=== PATIENT | female | born 1990 | race Caucasian/White ===

== ENCOUNTER 2016-10-15 15:42 | Inpatient (IN) | payer OTHER ==
[~2016-10-15] VITALS: Ht 165.1 cm; Wt 95.5 kg
[2016-10-15 17:57] VITALS: Ht 165.1 cm; Wt 95.5 kg
[2016-10-15] MEDS ORDERED: PRENTAB26 PO (18:08)
[2016-10-15] MEDS ORDERED: VALA500T60 PO (18:08)
[2016-10-15] MEDS ORDERED: LACTATED RINGER'S 1000ML 500 ML IV PRN (18:26)
[2016-10-15] MEDS ORDERED: LACTATED RINGER'S 1000ML 1,000 ML IV PRN (18:26)
[2016-10-15] MEDS ORDERED: OXYTOCIN 30 UNITS/500ML NSS IV PRN (18:30)
[2016-10-15 18:52] LABS: HEMATOCRIT 36.3 % (37-47); MEAN CELL VOLUME 86.4 fL (80-100); MEAN CORPUSCULAR HEMOGLOBIN 29.3 pg (25-34); MEAN CORPUSCULAR HGB CONC 33.9 g/dl (32-36); MEAN PLATELET VOLUME 10.3 fL (7.4-10.4); PLATELET COUNT 248 K/uL (130-400); WHITE BLOOD COUNT 11.67 K/uL (4.8-10.8)
--- NOTE | 2016-10-15 18:54 | HISTORY & PHYSICAL EXAMINATION ---
DATE OF ADMISSION: 10/15/2016 HISTORY OF PRESENT ILLNESS: This is a 26-year-old G3, P2, due date 10/13/2016 making her 40 weeks and 2 days today who has had an unremarkable course. She was seen today in the office and her NST done was nonreactive. Biophysical profile was 6/8. There was no bleeding. The patient reported decreased movement x3 days. Amniotic fluid index was 19.6. The patient was offered induction and has agreed. The patient is here today on labor and delivery with no shortness of breath, no chills, no fever. On arrival, heart rate is category 1. Plan is to start labor induction. course has been unremarkable except for today at 40 weeks and 2 days. NST was nonreactive. Biophysical profile was 6/8, no bleeding. PAST MEDICAL HISTORY: 1. History of genital herpes and has been on Valtrex for prophylaxis at 36 weeks size, has no lesions today. 2. History of irritable bowel syndrome. PAST SURGICAL HISTORY: 1. Dental surgery. 2. Colonoscopy. SOCIAL HISTORY: The patient is . Denies drugs, tobacco or alcohol use. ALLERGIES: THE PATIENT IS ALLERGIC TO AMOXICILLIN. LABS: Blood type A positive, antibody negative, rubella immune, GBS negative. PHYSICAL EXAMINATION: GENERAL: Well-developed, well-nourished white female in no acute distress. HEART: S1, S2, regular rhythm and rate. LUNGS: Clear to auscultation bilaterally. ABDOMEN: Gravid. Bedside ultrasound shows cephalic presentation. PELVIC: The patient is 2 cm, 60% effaced and minus 2. EXTREMITIES: No cyanosis, clubbing or edema. ASSESSMENT AND PLAN: A 26-year-old G3, P2 at 40 weeks and 2, NST today is nonreactive. Biophysical profile 6/8, no bleeding. The patient was offered labor induction and has agreed. The patient is therefore here for induction of labor. The patient is admitted and plan is to start labor induction with Pitocin.
[2016-10-15] MEDS: LACTATED RINGER'S 1000ML 1,000 ML IV SCH (20:42)
[2016-10-16] MEDS: LACTATED RINGER'S 1000ML 1,000 ML IV SCH ×2 (02:50→04:34)
[2016-10-16] MEDS ORDERED: BUPIVACAINE 0.25% 30 ML VIAL ONE (03:34)
[2016-10-16] MEDS ORDERED: EpHEDrine SULFATE INJ 50 MG/ML AMP ONE (03:34)
[2016-10-16] MEDS ORDERED: FENTANYL 2MCG/ML ROPIV 1.25MG/ML 100ML BAG EPI ONE (03:35)
[2016-10-16] MEDS ORDERED: FENTANYL CITRATE INJ 50 MCG/1 ML 2 ML VIAL ONE (03:35)
[2016-10-16] MEDS ORDERED: LACTATED RINGER'S 1000ML 500 ML IV PRN (04:36)
[2016-10-16] MEDS ORDERED: NALOXONE HCL INJ 1 MG in SODIUM CHLORIDE 0.9% 1000ML 1,000 ML IV PRN (04:36)
[2016-10-16] MEDS ORDERED: DiphenhydrAMINE HCL 50 MG/ML VIAL IV PRN (04:45)
[2016-10-16] MEDS ORDERED: NALOXONE HCL INJ 0.4 MG/1 ML VIAL/CARP IV PRN (04:45)
[2016-10-16] MEDS ORDERED: ONDANSETRON INJ 2 MG/ML 2 ML VIAL IV PRN (04:45)
[2016-10-16] MEDS ORDERED: NALBUPHINE HCL INJ 10 MG/ML AMP IV PRN (04:45)
[2016-10-16] MEDS ORDERED: EpHEDrine SULFATE INJ 50 MG/ML AMP IV PRN (04:45)
[2016-10-16] MEDS ORDERED: FENTANYL 2MCG/ML ROPIV 1.25MG/ML 100ML BAG EPI PRN (04:45)
[2016-10-16] MEDS ORDERED: OXYTOCIN 30 UNITS/500ML NSS IV PRN (08:15)
[2016-10-16] MEDS ORDERED: HYDROCORTISONE ACETATE 25 MG SUPP PR PRN (08:15)
[2016-10-16] MEDS ORDERED: SUPERCREAM 0.870 % 15GM JAR EXT PRN (08:15)
[2016-10-16] MEDS ORDERED: LANOLIN OINT EXT PRN ×2 (08:15)
[2016-10-16] MEDS ORDERED: ACETAMINOPHEN 325 MG TAB PO PRN (08:15)
[2016-10-16] MEDS ORDERED: BENZOCAINE 20% AER SPR 82.5 GM CAN EXT PRN (08:15)
--- NOTE | 2016-10-16 08:46 | DELIVERY SUMMARY ---
DATE OF OPERATION: 10/16/2016 / DELIVERY NOTE DATE OF DELIVERY: 10/16/2016. The patient delivered a live female in occiput anterior presentation. There was a double nuchal cord which was easily reduced. Infant was delivered and placed on mother's abdomen. Cord clamped and cut. Cord gas was obtained. Placenta was spontaneously delivered. Inspection of the placenta showed what was grossly normal. There was some calcification uterine placenta. There was 3-vessel cord seen. Placenta is sent to pathology for pathological analysis because of poor testing. Inspection of the perineum shows a first degree midline laceration which was repaired with Vicryl. ESTIMATED BLOOD LOSS: 400 mL. Infant's weight and Apgars pending via pediatrics. The patient and baby are doing well in recovery. All instruments are removed from the vagina including laps, sponges and needles and accounted for x2. I attest to the content of the Intraoperative Record and any orders documented therein. Any exceptions are noted below. MTDD
--- NOTE | 2016-10-16 10:14 | Anesthesia Procedure Note ---
Anesthesia Epidural Removal Nt Date & Time Oct 16, 2016 at 10:14 Vital Signs Pain Intensity: 0.0 Notes Mental Status: alert / awake / arousable, participated in evaluation Nausea / Vomiting: adequately controlled Pain: adequately controlled Airway Patency, RR, SpO2: stable & adequate BP & HR: stable & adequate Hydration State: stable & adequate Neuraxial Anesthesia: was administered, sensory block is resolving Anesthetic Complications: no major complications apparent, pt satisfied with anesthetic care Epidural: removed without complications, with tip intact
[2016-10-16 10:20] VITALS: BP 102/56; PULSE 86; TEMP 36.8
[2016-10-16 11:30] VITALS: BP 109/62; PULSE 83; TEMP 36.9
[2016-10-16 15:30] VITALS: BP 121/77; PULSE 99; TEMP 36.8
[2016-10-16] MEDS: IBUPROFEN 600 MG TAB PO PRN ×2 (16:11→20:55)
[2016-10-16 20:30] VITALS: BP 115/67; PULSE 88; TEMP 36.8
[2016-10-16] MEDS: DOCUSATE SODIUM 100 MG CAP PO SCH (20:30)
[2016-10-16 23:25] VITALS: BP 114/67; PULSE 72; TEMP 36.5
[2016-10-17 04:30] VITALS: BP 95/58; PULSE 74; TEMP 36.7
[2016-10-17 06:54] LABS: HEMATOCRIT 34.1 % (37-47)
--- NOTE | 2016-10-17 07:32 | OB/GYN Progress Note ---
VP OF MARKETING Progress Note Date of Service: Oct 17, 2016. Patient is seen and examined. She feels well, no complaints. Likes to go home Ambulating without dizziness Voiding without difficulty Tolerating regular diet with out N&V Bleeding is minimal No fever/ chills/ CP/ SOB/ N&V/ Leg pain Breast feeding without problems Date Time Temp Pulse Resp B/P Pulse Ox O2 Delivery O2 Flow Rate FiO2 10/17/16 04:30 36.7 74 20 95/58 Room Air 10/16/16 23:25 36.5 72 20 114/67 Room Air 10/16/16 23:25 Room Air 10/16/16 20:30 36.8 88 18 115/67 Room Air 10/16/16 15:30 36.8 99 18 121/77 10/16/16 15:30 Room Air 10/16/16 11:30 36.9 83 18 109/62 Room Air 10/16/16 10:20 Room Air 10/16/16 10:20 36.8 86 18 102/56 Room Air Last 24 Hours Test 10/17/16 06:18 Hemoglobin 11.5 g/dL Hematocrit 34.1 % PE: General: Alert, orientedx3, NAD Abd: soft, NT, fundus firm, below Umbilicus Perineum intact, Lochia rubra minimal Ext; NT, no edema AP: 26 yo s/p , ppd# 1 VSS Afebrile doing well Continue routine care All questions were answered D/C home per her request if baby will be d/c'd Instructions were given when to call
--- NOTE | 2016-10-17 07:33 | Discharge Instructions ---
Discharge Instructions Date of Service Oct 17, 2016. Admission Reason for Admission: Induction Discharge Discharge Diagnosis / Problem: Discharge Goals Goal(s): Routine recovery after delivery Medications Continue Dispensed Medications: supercream, dermaplast, tucks, lansinoh Activity Recommendations Activity Limitations: as noted below Lifting Limitations: gradually increase as tolerated Exercise/Sports Limitations: until after follow-up appointment May Resume Sexual Activity: after follow-up appointment Shower/Bathe: no limitations Driving or Machine Use: ACTIVITY RECOMMENDATIONS: * Gradual return to full activity over the next 2-3 weeks. * No lifting - nothing heavier than baby over the next 2-3 weeks. * Do not engage in vigorous exercise, sexual activity or sports until cleared by your physician. * Do not drive or operate any motorized equipment until cleared by your physician. * You may shower/bathe daily. BREAST CARE: If you are not breast feeding: * Wear a supportive bra 24 hours a day for one to two weeks. * Avoid stimulating your breasts and nipples as much as possible during the first few weeks after delivery. * When taking a shower, have the warm water hit your back, not breasts. * When your breasts feel full, apply ice packs. Usually three to four times a day helps ease the discomfort. * Take a mild pain medication (Tylenol/Motrin) when you are uncomfortable. If breast feeding: * Use breast milk to lubricate nipples. Lansinoh cream may be used for sore nipples. You do not need to remove cream prior to breast feeding. If using a different brand of cream, check the label for directions regarding removal of cream prior to nursing. * Wear a supportive bra. * If having problems with breasts or breast feeding, call a solar energy consultant and designer or your health care provider. EPISIOTOMY CARE: After delivery, if you have an episiotomy (stitches), the following steps will ease discomfort and aid healing. * For the first 24 hours after delivery, place ice packs next to your episiotomy to help reduce swelling. * After the first 24 hour-period, sitz baths, either portable or in the tub, are suggested. A shower with a shower arm sprayed over the episiotomy may be comforting. * Genoveva care should be done after each voiding and bowel movement. Squirt warm water from a plastic bottle over the perineum (region of the body between the anus and urinary opening) and pat dry. * Use Dermoplast to ease discomfort. Shake container. [place] directly over the episiotomy. * Place a Tucks on a clean sanitary pad next to your episiotomy. OVER THE COUNTER MEDICATION: * For discomfort or pain, you may use Acetaminophen (Tylenol), Ibuprofen (Advil ), or Naproxen (Aleve) following the package directions. * For constipation you may use Colace following the package directions. SPECIAL CARE INSTRUCTIONS: When you are discharged from the hospital, it is important for you to follow the instructions listed below: * During the first week at home, you should be able to care for yourself and your baby. In addition, the usual light household activities are encouraged. * Limit your activities to the way you feel. Do not try to clean the house or move furniture. Be sensible. * If you actively engage in sports and have done so up until the time of your delivery, you may resume these activities as soon as you feel able. This may take up to one month or even longer. Use good judgment. * Continue to take your vitamins for at least six weeks after the of your baby. * Your diet need not be limited unless you were on a special diet before your delivery. Breast-feeding mothers need around 2500 calories per day and at least 64-80 ounces of fluid per day (8 to 10 glasses). * You should eat foods from the four major food groups. Crash diets or fad diets are to be avoided. Eating lean meats, fresh fruits and vegetables, low-fat dairy products, high fiber foods and a regular exercise program, will help you get back to your pre- weight without putting your health at risk. * Constipation is sometimes a problem after delivery. Take a mild laxative as needed. If breast feeding, Milk of Magnesia is acceptable to use. You may use a suppository or Fleets enema if no episiotomy. * A daily shower or tub bath is suggested. Be sure to thoroughly and gently dry the perineum. * A bloody vaginal discharge will usually continue until around four weeks post . A small amount of bleeding may continue for as long as six weeks. Vaginal discharge changes from the bright red bleeding after delivery to pink then brownish and finally yellowish-pink before becoming white and disappearing. * Bleeding may increase with activity. Your first period may come in 4-8 weeks. If you are breast feeding, your period may be delayed even longer. * [place] (sex) can begin whenever both you and your partner feel comfortable and do not have any form of genital infection. It is recommended that you wait until after your return appointment and discuss with your physician. If you have questions, please talk to your health care practitioner. A condom should be used to prevent infection and . * Foreplay, gentle intercourse and lubrication is very important the first several times to prevent pain. A water-based lubricant such as K-Y jelly or Astroglide may be used. * Tampons may be used six weeks after delivery. * Douching should be avoided for 6 weeks after delivery. * If you have RH negative blood and your baby is RH positive, you will receive RHOGAM by injection prior to discharge. The nurse will give you a card to keep with you that has the date and place that you received RHOGAM after delivery. * During your care, you had a Rubella screen done to check for the presence of rubella antibodies in your blood. If your test was negative, you will receive a Rubella vaccine prior to discharge. This vaccine may cause a fever, soreness at the injection site and flu-like symptoms. If these symptoms persist, notify your health care practitioner. is not advised for three months after a Rubella vaccine. There is a higher chance of having a baby with defects if conceived within three months of getting the vaccine. * If you were discharged 24 hours from delivery or before 48 hours: Visiting nurses will come to your home 48 hours after discharge to assess you and your baby. The visiting nurse will meet with you while you are in the hospital to arrange a time and get directions to your home. * Verbalizes understanding of car seat law as reviewed with patient nursing. * Car Seat hand-out given and reviewed with patient by nursing. * Shaken baby information reviewed with patient by nursing. Call you doctor if: * Heavy bleeding (saturating several pads an hour) or passing clots the size of your fist. * A fever >101 degrees F (38.3 degrees C) on two occasions four hours apart and/or chills. * Unusual pain in the pelvic or vaginal areas. * "Baby Blues" lasting longer than two weeks. If you have any questions or concerns, call your health care practitioner at . FOLLOW-UP VISIT: * Please call the office at to schedule a 6 week examination. It is important you keep this appointment. * It is important for you to make arrangements for either yearly or twice yearly check-ups thereafter. . Current Hospital Diet Patient's current hospital diet: Regular OB Diet Discharge Diet Recommended Diet: Regular Diet Pending Studies Studies pending at discharge: no Medical Emergencies . Who to Call and When: Medical Emergencies: If at any time you feel your situation is an emergency, please call 911 immediately. . Non-Emergent Contact Non-Emergency issues call your: Surgeon Call Non-Emergent contact if: temperature is above 100.5, your pain is not controlled, your pain is worsening . . "Provider Documentation" section prepared by Marquise Beal. VTE Core Measure Inpt VTE Proph given/why not?: Treatment not indicated
[2016-10-17 08:00] VITALS: BP 112/57; PULSE 88; TEMP 36.8; O2SAT 98
[2016-10-17] MEDS ORDERED: PRENATAL VITAMIN TAB PO SCH (08:00)
[2016-10-17] MEDS ORDERED: FERROUS SULFATE 325 MG TAB PO SCH (08:00)
[2016-10-17] MEDS: DOCUSATE SODIUM 100 MG CAP PO SCH (08:19)
[2016-10-17] MEDS: IBUPROFEN 600 MG TAB PO PRN (08:19)
[2016-10-17 12:30] VITALS: BP_DIAS 57; PULSE 88; TEMP 36.8
[2016-10-17] MEDS ORDERED: BISACODYL 5 MG TABEC PO SCH (20:00)
[2016-10-18] MEDS ORDERED: BISACODYL 10 MG SUPP PR PRN (07:00)
== END 2016-10-17 13:08 | disposition home or self-care (01) | DRG 774 ==
LOC: C.LD 17:11 → C.OBG 10-16 10:28
PROVIDERS: ADMIT Obstetrics & Gynecology; ATTEND Obstetrics & Gynecology
PROC: 3E053VJ Introduction of Other Hormone into Peripheral Artery, Percutaneous Approach (ICD-10-PCS; 2016-10-15)
PROC: 0HQ9XZZ Repair Perineum Skin, External Approach (ICD-10-PCS; principal; 2016-10-16)
PROC: 10E0XZZ Delivery of Products of Conception, External Approach (ICD-10-PCS; principal; 2016-10-16)
DX: O48.0 Post-term pregnancy (principal); O70.0 First degree perineal laceration during delivery; Z3A.40 40 weeks gestation of pregnancy; O98.311 Other infections with a predominantly sexual mode of transmission complicating pregnancy, first trimester; A60.09 Herpesviral infection of other urogenital tract; O69.2XX0 Labor and delivery complicated by other cord entanglement, with compression, not applicable or unspecified; Z37.0 Single live birth

== ENCOUNTER → 2017-09-26 | Day surgery (SDC) | payer OTHER ==
[~2017-09-26] VITALS: Ht 165.1 cm; Wt 78.0 kg
[~2017-09-26] MED LIST: PRENTAB26 PO
[2017-09-26 07:35] VITALS: BP 109/54; PULSE 64; O2SAT 96; Ht 165.1 cm; Wt 78.0 kg
--- NOTE | 2017-09-26 09:38 | History & Physical Bridge Note ---
H&P Re-Evaluation Bridge Note: I have examined the patient, reviewed the History & Physical and in the interval since the performance of the History & Physical I have noted the following changes of clinical significance: No changes noted
--- NOTE | 2017-09-26 09:51 | Procedure Note ---
Cardiac Cath Report Procedure: Tilt table History: This is a 27-year-old female who has been experiencing dizziness. She' s had an extensive outpatient workup including long-term event monitor and neurologic evaluation. No clear etiology is been found for her dizziness. She is now willing to undergo a tilt table. Procedure summary: After informed consent was obtained the patient was placed on a tilt table. In the supine position her blood pressure was 117/72 with a heart rate of 58 and she was in sinus rhythm. She was then tilted. She remained in this position for 46 minutes without becoming symptomatic. There were no significant immediate or after being tilted for 45 minutes changes in her blood pressure or heart rate. The patient was brought back to the supine position. Summary: Negative tilt table study for orthostatic or neurocardiogenic syncope.
== END | disposition home or self-care (01) ==
LOC: C.CATH 07:23
PROVIDERS: ATTEND Internal Medicine Interventional Cardiology
DX: R42 Dizziness and giddiness (principal); Z88.1 Allergy status to other antibiotic agents; Z88.5 Allergy status to narcotic agent; Z91.040 Latex allergy status; K58.9 Irritable bowel syndrome, unspecified; A60.00 Herpesviral infection of urogenital system, unspecified; Z83.2 Family history of diseases of the blood and blood-forming organs and certain disorders involving the immune mechanism; Z82.49 Family history of ischemic heart disease and other diseases of the circulatory system; Z81.8 Family history of other mental and behavioral disorders; Z83.79 Family history of other diseases of the digestive system

== ENCOUNTER 2025-01-21 16:13 | Inpatient (IN) ==
--- NOTE | 2025-01-21 16:23 | Emergency Department Note ---
History of Present Illness General Chief complaint: Abnormal Labs/Diagnostic Testing Stated complaint: RECHECK Time Seen by Provider: 01/21/25 16:21 History of Present Illness Maximum Pain Intensity: 3 This is a 34-year-old female that presents to the emergency department via private vehicle with complaints of "recheck of infection". The patient notes she was stepped on by a horse a few weeks ago, the area became infected and she was placed on antibiotics. She was here over the weekend given Dalvance. She notes some improvement but overall continued swelling and redness of the left foot and ankle region. She did note fever/chills on this past Tuesday during her ED visit but those have resolved. No nausea or vomiting. Current pain 10/01. In regard to allergies, she notes that the rash associated with cefuroxime/amoxicillin was as a child and nothing recent. No anaphylaxis. Home Medications Medication Instructions Recorded Confirmed Type tramadol 50 mg tablet 50 mg PO Q8H PRN pain #20 tabs 01/09/25 01/21/25 Rx doxycycline hyclate 100 mg capsule 100 mg PO BID 10 days #20 caps 01/17/25 01/21/25 Rx cephalexin 500 mg capsule 500 mg PO TID 01/21/25 01/21/25 History epinephrine 0.3 mg/0.3 mL 0.3 mg IM DIRECTED PRN 01/21/25 01/21/25 History injection, auto-injector anaphylaxis Allergies Allergy/AdvReac Type Severity Reaction Status Date / Time amoxicillin Allergy Intermediate RASH Verified 01/21/25 16:48 cefuroxime Allergy Intermediate RASH Verified 01/21/25 16:48 latex Allergy Intermediate rash Verified 01/21/25 16:48 nickel Allergy Intermediate RASH Verified 01/21/25 16:48 codeine AdvReac Intermediate hallucinati Verified 01/21/25 16:48 ons Past Med/Surg History Problem List (Updated 01/21/25 @ 22:47 by Drew Larkin PA-C) Soft tissue injury of left foot (Acute) Injury of left foot Chest pain (Acute) Cellulitis of left foot (Acute) Constipation (Chronic) Medical History (Updated 01/21/25 @ 22:47 by Drew Larkin PA-C) Ovarian cyst H/O hemorrhoids Surgical History (Updated 01/21/25 @ 17:37 by Jennifer Cifuentes PA-C) History of colposcopy History of rectal surgery Social History (Updated 01/21/25 @ 17:35 by Jennifer Cifuentes PA-C) Smoking Status: Never smoker Second Hand Exposure: No; Do You Dip or Chew Tobacco: No; Tobacco Cessation Education Requested by Patient: No Hx Alcohol Use: Yes Alcohol type: beer and wine Hx Substance Use: No Preferred Language: Croatian 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 Beliefs That Will Affect Care: None marital status: Current Living Situation: Spouse current occupational status: employed Other Information That Helps Us Care for You: No Feels Safe at Home: Yes Safety Concerns: Feels Safe At This Time Assistive Devices: None Review of Systems A total of 10 systems reviewed and were otherwise negative Physical Exam Vital Signs Vital Signs - 24 hr 01/21/25 16:14 Temperature 36.0 C L Temperature Source Temporal Artery Scan Pulse Rate 74 Respiratory Rate 18 Blood Pressure 126/80 Blood Pressure Mean 95 Pulse Oximetry 99 Oxygen Delivery Method Room Air Sepsis Recent Fever Within 48 Hours Yes Sepsis New/Unexplained Change in Mental Status N/A Sepsis Action Taken by Nursing No Action Required VITAL SIGNS - Vital signs and nursing notes were reviewed. Stable and afebrile. GENERAL -34-year-old female appearing her stated age who is in no acute distress. Communicates well with provider and answers questions appropriately. SKIN - erythema and edema overlying the dorsal aspect of the left foot tracking to the left lateral malleolus region. Areas with increased warmth. No crepitus or fluctuance. HEAD - NC/AT. EYES - Sclera anicteric. LUNGS - CTA CARDIAC - RRR. No murmur. EXTREMITIES - No clubbing or peripheral cyanosis. Skin as above. Left dorsalis pedis pulse within normal limits. No crepitus. No bony tenderness. +5/5 strength noted in UE/LE bilaterally. NEUROLOGIC - Cranial nerves grossly intact. Sensory intact to the left foot without deficit. PSYCH -alert, oriented and pleasant on exam. Course Administered Medications Enoxaparin Sodium (Enoxaparin Inj 40 Mg/0.4 Ml Syr) 40 mg SQ HS MICHI Stop: 02/20/25 20:59 Last Admin: 01/21/25 21:53 Dose: 40 mg Documented By: CSJ Discontinued Medications Cefepime HCl (Maxipime 2000mg) 2,000 mg in 20 mls @ 5 mls/min IV NOW STA; Protocol Stop: 01/21/25 16:34 Last Admin: 01/21/25 17:12 Dose: 5 mls/min Documented By: CEF Medical Decision Making Laboratory Data 01/21/25 17:00 01/21/25 17:00 [facility] Narrative Patient was seen and evaluated as above in room D2. Review was performed of triage nursing notes and vital signs. I did review pertinent previous visits and patient history. After obtaining a thorough history and physical examination the above work up was performed. Patient presents to us today for evaluation of ongoing left foot erythema, edema and increased warmth. Much of this appears to have been contusion but now secondarily infected. Patient does arrive with the area wrapped. Dressing consisted of Xeroform followed by gauze. There is no purulence or crepitus. Patient did note that some of the edema did subside since the injury however as of recent has increased. This is suspicious for secondary infection post injury. Options of care were discussed with the patient. IV access was established. Labs were drawn. No leukocytosis or concerning anemia. No emergent metabolic disturbance. hCG negative. Pro-Enrique undetectable. I did not redraw blood cultures as they were negative as drawn 2 days ago. I did not repeat imaging as the patient had foot radiographs 2 days ago. I did review the CT scan of the foot from 01/03/2025. As the patient did have a Dalvance recently, will broaden coverage with IV cefepime at this time. I reviewed benefit versus risk with the patient. It is felt that the benefit outweighed risk as she has tolerated cephalosporins previously since the documented rash with cefuroxime as a child. Cefepime was without issue. Case discussed with the hospitalist service. Please refer to further documentation regarding her stay. In the evaluation and treatment of this patient the following differential diagnoses were entertained: Cellulitis, necrotizing fasciitis, contusion, abscess, among others. Impression & Plan Cellulitis of left foot, Soft tissue injury of left foot Discharge Plan Visit Data Chief Complaint: Abnormal Labs/Diagnostic Testing Stated Complaint: RECHECK ED Provider: Maryan Duong ED Midlevel Provider: Drew Larkin Discharge Problem: Cellulitis of left foot, Soft tissue injury of left foot Patient Disposition: Admitted As Inpatient Condition: Good Discharge Instructions Interventions: ED Discharge Assessment Last Done: 01/21/25 17:22
--- NOTE | 2025-01-21 16:52 | History & Physical Report ---
Date of Service January 21, 2025 Assessment & Plan (1) Injury of left foot: (2) Soft tissue injury of left foot: (3) Cellulitis of left foot: Plan This is an otherwise healthy 34 year old F who sustained a foot injury on 01/03 after been stepped on by horse. Please refer to image under physical exam. L foot appears to have significant soft tissue injury/contusion with soft tissue abrasion. There is no drainage from wound or significant erythema, but more so contusion. It is not warm. She is afebrile and no leukocytosis. It is quite possible there is underlying infection. Will empirically tx with IV cefepime and continue doxycycline for now. Consult [facility] to determine if able to get MRI at this point given extent of swelling. Will continue NWB, ICE, Elevation, Prn apap or tramadol for pain. Consult ID for antibiotic recs and await further ortho input. DVT ppx: SQ Lovenox given current injury FULL CODE PCP: Yara Ellis Dispo: admit to medical, likely d/c in 1-2 days Pt was seen and examined in collaboration with Dr. Mora, please see addendum I spent a total of 60 minutes coordinating, documenting and providing care for this patient excluding time spent in the performance of separately billed services or time spent by another provider/QHP. History of Present Illness Chief Complaint: L foot injury on 01/03. Primary Care Provider: VALENTINA Douglas This is a 34-year-old otherwise healthy female who presents to ED secondary to left foot injury. Of significance patient was stepped on by a horse on 01/03. She was seen and examined in the ED on the same day. Per documentation tetanus is up-to-date. She underwent left foot x-ray and left foot CT. There is no evidence of acute fracture and she was placed in a posterior Ortho-Glass splint. She was seen and examined by orthopedics on 01/09 where it was felt that this was likely significant soft tissue injury and no acute fracture. She was encouraged to be nonweightbearing until pain improved. Due to persisting pain and swelling she ought to be seen in ED on 01/13 and 01/19. On 01/13 she was started on a course of Keflex. She has since completed the course of Keflex. She was reevaluated in ED on 01/19 and received a dose of IV Dalvance and prescribed doxy. She was encouraged to follow-up today for a wound recheck. Due to no significant improvement admission was recommended. In ED patient made hemodynamically stable. On she underwent a CBC, BMP as well as blood cultures which are showing no growth to date. Allergies Allergy/AdvReac Type Severity Reaction Status Date / Time amoxicillin Allergy Intermediate RASH Verified 01/21/25 16:48 cefuroxime Allergy Intermediate RASH Verified 01/21/25 16:48 latex Allergy Intermediate rash Verified 01/21/25 16:48 nickel Allergy Intermediate RASH Verified 01/21/25 16:48 codeine AdvReac Intermediate hallucinati Verified 01/21/25 16:48 ons Home Medications Medication Instructions Recorded Confirmed Type tramadol 50 mg tablet 50 mg PO Q8H PRN pain #20 tabs 01/09/25 01/21/25 Rx doxycycline hyclate 100 mg capsule 100 mg PO BID 10 days #20 caps 01/17/25 01/21/25 Rx cephalexin 500 mg capsule 500 mg PO TID 01/21/25 01/21/25 History epinephrine 0.3 mg/0.3 mL 0.3 mg IM DIRECTED PRN 01/21/25 01/21/25 History injection, auto-injector anaphylaxis Past Med/Surg History Problem List (Updated 01/21/25 @ 17:37 by Jennifer Cifuentes PA-C) Soft tissue injury of left foot Injury of left foot Chest pain (Acute) Cellulitis of left foot (Acute) Constipation (Chronic) Medical History (Updated 01/21/25 @ 17:37 by Jennifer Cifuentes PA-C) Ovarian cyst H/O hemorrhoids Surgical History (Updated 01/21/25 @ 17:37 by Jennifer Cifuentes PA-C) History of colposcopy History of rectal surgery Social History (Updated 01/21/25 @ 17:35 by Jennifer Cifuentes PA-C) Smoking Status: Never smoker Second Hand Exposure: No; Do You Dip or Chew Tobacco: No; Tobacco Cessation Education Requested by Patient: No Hx Alcohol Use: No Hx Substance Use: No Preferred Language: Tamaz[place] marital status: Current Living Situation: Spouse and Family current occupational status: employed Feels Safe at Home: Yes Review of Systems 2 Review of Systems: All systems reviewed & are unremarkable except as noted in HPI & below Physical Exam 2 Physical Exam: Constitutional: WD/WN, vitals as above, NAD, sitting up in bed, pleasant, conversing easily Head: Normocephalic, Atraumatic Eyes: PERRL, conjunctivae normal, anicteric sclerae ENMT: external ear and nose normal, oropharynx normal Neck: trachea midline, no thyromegaly normal visual inspection Respiratory: CTAB no w/r/r Cardiovascular: RRR, no murmur, no edema Vessels: no JVD or carotid bruit Chest: normal inspection of chest Abdomen: normal bowel sounds, soft, nontender, no hepatosplenomegaly Musculoskeletal: L foot with dorsal edema and limited ROM with plantar/dorsiflexion and ext/flexion of toes, not warm, more dark brown, not erythematous, no hussain drainage Skin: no rashes, warm and dry normal turgor Neurologic: no face palsy, no dysarthria CN's II-XI intact bilaterally and moves all extremities Psychiatric: A+Ox3, euthymic affect Results & Data Results & Data Vital Signs (Past 12 Hours) Vital Signs Temp Pulse Resp BP Pulse Ox O2 Del Method 01/21/25 16:14 36.0 C L 74 18 126/80 99 Room Air Laboratory Results I have independently reviewed and interpreted patient's admitting labs including CBC, CMP, procal, hcg Medications Administered Medication List Discontinued Medications Cefepime HCl (Maxipime 2000mg) 2,000 mg in 20 mls @ 5 mls/min IV NOW STA; Protocol Stop: 01/21/25 16:34 Last Admin: 01/21/25 17:12 Dose: 5 mls/min COVID-19 Results Results COVID-19 Adm Lab Results: 2 RBC 4.61 M/uL (4.20-5.40) 01/21/25 WBC 9.44 K/ul (4.8-10.8) 01/21/25 Hgb 13.5 g/dl (12.0-16.0) 01/21/25 Hct 39.8 % (37.0-47.0) 01/21/25 Plt Count 402 K/uL (130-400) H 01/21/25 Neutrophils (%) (Auto) 56.9 % 01/21/25 Lymphocytes (%) (Auto) 33.9 % 01/21/25 Monocytes # (Auto) 0.67 K/uL (0.11-0.59) H 01/21/25 Eosinophils # (Auto) 0.11 K/uL (0.00-0.50) 01/21/25 Immature Granulocyte % (Auto) 0.2 % 01/21/25 Neutrophils # (Auto) 5.37 K/uL (1.40-6.50) 01/21/25 Lymphocytes # (Auto) 3.20 K/uL (1.20-3.40) 01/21/25 Monocytes # (Auto) 0.67 K/uL (0.11-0.59) H 01/21/25 Eosinophils # (Auto) 0.11 K/uL (0.00-0.50) 01/21/25 Basophils # (Auto) 0.07 K/uL (0.00-0.20) 01/21/25 Immature Granulocyte # (Auto) 0.02 K/uL (0.01-0.20) 5 Na 139 mmol/L (136-145) 01/21/25 K 4.4 mmol/L (3.5-5.1) 01/21/25 Cl 105 mmol/L (98-107) 01/21/25 CO2 26 mmol/L (21-32) 01/21/25 Anion Gap 8 (3-11) 01/21/25 BUN 15 mg/dl (6-23) 01/21/25 Creatinine 0.83 mg/dl (0.6-1.2) 01/21/25 BUN/Creatinine Ratio 18.1 (10-20) 01/21/25 Glucose Level 90 mg/dl (70-99(Fasting)) 01/21/25 Ca 9.6 mg/dl (8.6-10.3) 01/21/25 Total Bilirubin 0.5 mg/dl (0.2-1.0) 01/21/25 AST/SGOT 13 U/L (13-39) 01/21/25 ALT/SGPT 16 U/L (7-52) 01/21/25 Alkaline Phosphatase 71 U/L (34-104) 01/21/25 Total Protein 7.3 gm/dl (6.0-8.3) 01/21/25 Albumin 4.2 gm/dl (3.4-5.0) 01/21/25 Globulin 3.1 gm/dl (2.5-4.0) 01/21/25 Albumin/Globulin Ratio 1.4 (0.9-2) 01/21/25 Procalcitonin < 0.02 ng/ml (0-0.5) 01/21/25 Code Status & VTE Plan Code Status FULL CODE VTE Prophylaxis Plan VTE Prophylaxis will be ordered: No Supervising Physician Co-Signing Physician Notes 34-year-old lady presented to the ED as a follow-up of her left foot injury [sustained injury January 03]and associated cellulitis not improving on outpatient antibiotic therapy. Patient was evaluated by orthopedics as an outpatient, the swelling persists, erythema and pain has improved. There is some warmth to the swelling. Patient recently had a febrile episode with chills and sweating on Tuesday. Labs fairly WNL. Recent Foot x-ray and CT foot with no fractures. Foot injury/associated cellulitis: Orthopedic consult, continue cefepime, probiotic, ID consult, leg elevation, cold compression, Pain Mx. Follow-up blood culture, so far no growth. On exam: Left foot dorsal swelling with minimal swelling of toe tips, no erythema but minimal warmth and mildly tender. Rest of the examination as above. Total time spent independently: 21 minutes. I have seen and examined the patient and have discussed the case with the provider above. I agree with the assessment and plan as stated.
[2025-01-21] MEDS: CEFEPIME 2000MG 2,000 MG/20 ML SYR IV STA (17:12)
[2025-01-21 17:14] LABS: Hematocrit (blood only) 39.8 % (37.0-47.0); Hemoglobin 13.5 g/dl (12.0-16.0); Immature Granulocytes # (auto) 0.02 K/uL (0.01-0.20); Immature Granulocytes % (auto) 0.2 %; Mean Corpuscular Hemoglobin 29.3 pg (25.0-34.0); Mean Corpuscular Volume 86.3 fL (80.0-100.0); Platelet Count 402 K/uL (130-400); RDW Standard Deviation 39.0 fL (36.4-46.3); Red Blood Count 4.61 M/uL (4.20-5.40); White Blood Count 9.44 K/ul (4.8-10.8)
[2025-01-21 17:27] LABS: Pregnancy Test, Serum Negative (Negative)
[2025-01-21 17:32] LABS: Alanine Aminotransferase 16.0 U/L (7-52); Albumin Globulin Ratio 1.4 (0.9-2); Alkaline Phosphatase 71.0 U/L (34-104); Anion Gap 8.0 (3-11); Bilirubin,Total 0.5 mg/dl (0.2-1.0); Blood Urea Nitrogen 15.0 mg/dl (6-23); Calcium 9.6 mg/dl (8.6-10.3); Carbon Dioxide 26.0 mmol/L (21-32); Chloride 105.0 mmol/L (98-107); Creatinine Clr Calc Pharmacy 96.5 ml/min; Globulin 3.1 gm/dl (2.5-4.0); Glucose 90.0 mg/dl (70-99(Fasting)); Potassium 4.4 mmol/L (3.5-5.1); Sodium 139.0 mmol/L (136-145); Total Protein 7.3 gm/dl (6.0-8.3)
[2025-01-21] MEDS ORDERED: POLYETHYLENE (MIRALAX) 17 GM PACK PO PRN (17:53)
[2025-01-21] MEDS ORDERED: ONDANSETRON INJ 2 MG/ML 2 ML VIAL IV PRN (17:53)
[2025-01-21] MEDS ORDERED: MELATONIN 3 MG TAB PO PRN (17:53)
[2025-01-21] MEDS ORDERED: ACETAMINOPHEN 325 MG TAB PO PRN (17:53)
[2025-01-21] MEDS ORDERED: FAMOTIDINE 20 MG TAB PO PRN (17:53)
[2025-01-21] MEDS: ENOXAPARIN INJ 40 MG/0.4 ML SYR SQ SCH (21:53)
[2025-01-22] MEDS: CEFEPIME 2000MG 2,000 MG/20 ML SYR IV SCH (00:20)
[2025-01-22 05:55] LABS: Hematocrit (blood only) 39.7 % (37.0-47.0); Hemoglobin 13.4 g/dl (12.0-16.0); Immature Granulocytes # (auto) 0.03 K/uL (0.01-0.20); Immature Granulocytes % (auto) 0.4 %; Mean Corpuscular Hemoglobin 29.1 pg (25.0-34.0); Mean Corpuscular Volume 86.3 fL (80.0-100.0); Platelet Count 362 K/uL (130-400); RDW Standard Deviation 39.0 fL (36.4-46.3); Red Blood Count 4.60 M/uL (4.20-5.40); White Blood Count 8.28 K/ul (4.8-10.8)
[2025-01-22 06:09] LABS: Alanine Aminotransferase 16.0 U/L (7-52); Albumin Globulin Ratio 1.4 (0.9-2); Alkaline Phosphatase 64.0 U/L (34-104); Anion Gap 9.0 (3-11); Bilirubin,Total 0.8 mg/dl (0.2-1.0); Blood Urea Nitrogen 17.0 mg/dl (6-23); Calcium 9.2 mg/dl (8.6-10.3); Carbon Dioxide 24.0 mmol/L (21-32); Chloride 106.0 mmol/L (98-107); Creatinine Clr Calc Pharmacy 102.7 ml/min; Globulin 2.8 gm/dl (2.5-4.0); Glucose 90.0 mg/dl (70-99(Fasting)); Potassium 4.2 mmol/L (3.5-5.1); Sodium 139.0 mmol/L (136-145); Total Protein 6.8 gm/dl (6.0-8.3)
--- NOTE | 2025-01-22 09:55 | Orthopedic Consultation ---
Date of Service January 22, 2025 Assessment & Plan (1) Soft tissue injury of left foot: * Case/imaging reviewed and discussed with Dr Fuller * Findings consistent with soft tissue contusion with subsequent blistering, cellulitis vs edema * Low concern for deep soft tissue infection, abscess * No objection to MRI given persistent soft tissue swelling * Continue abx per primary team * Disposition: TBD * Daily treatment: Physical Therapy/ Occupational Therapy per protocol * Weight bearing status: WBAT * Recommend continued offloading/elevation for comfort, knee scooter. No restrictions to weight bearing from a bony integrity standpoint, may progress as tolerated * Pain control * Remainder care per primary team * Will continue to follow History of Present Illness Reason for Consultation: . L foot pain Requesting Physician: . Attending Physician: DO Ilene King .Patient is a 34 y/o female with left foot pain. No significant PMH. Presents to ED with Left foot pain for the past 2 weeks. Well known to ortho team, has been seen in outpatient setting for L foot contusion. Initial injury occurred 01/03, patient was stepped on by a horse. Initial imaging including XR and CT negative for fracture. Follow-up XR demonstrating soft tissue swelling. Outpatient ortho exam consistent with soft tissue contusion, given CAM boot and recommended to offload foot to allow healing. Patient reports persistent swelling and developing blistering in the days-week following initial injury. Evaluated by PCP, concern for cellulitis, Keflex prescribed which did not significantly improve symptoms. Subsequently seen at [facility] ED for further care. Given ongoing swelling, redness, patient returns for further evaluation. ED workup including WBC 9, negative blood culture 01/19, no repeat imaging given recent work-up. Orthopedics consulted for management recommendations. At time of exam patient sitting comfortably in bed, no acute distress. Reports moderate pain throughout the dorsal foot with some decreased sensation. Limited to ROM. Patient states she feels her swelling has improved marginally overnight. 01/03: Injury, initial ED visit 01/09: Initial ortho visit 01/11: PCP visit, [facility] Doppler (-) 01/13: [facility], Keflex 01/16: Ortho visit 01/19: ED visit 01/21: ED visit, admission Allergies Allergy/AdvReac Type Severity Reaction Status Date / Time amoxicillin Allergy Intermediate RASH Verified 01/21/25 16:48 cefuroxime Allergy Intermediate RASH Verified 01/21/25 16:48 latex Allergy Intermediate rash Verified 01/21/25 16:48 nickel Allergy Intermediate RASH Verified 01/21/25 16:48 codeine AdvReac Intermediate hallucinati Verified 01/21/25 16:48 ons Home Medications Medication Instructions Recorded Confirmed Type tramadol 50 mg tablet 50 mg PO Q8H PRN pain #20 tabs 01/09/25 01/21/25 Rx doxycycline hyclate 100 mg capsule 100 mg PO BID 10 days #20 caps 01/17/25 01/21/25 Rx cephalexin 500 mg capsule 500 mg PO TID 01/21/25 01/21/25 History epinephrine 0.3 mg/0.3 mL 0.3 mg IM DIRECTED PRN 01/21/25 01/21/25 History injection, auto-injector anaphylaxis Past Med/Surg History Problem List (Updated 01/21/25 @ 22:47 by Drew Larkin PA-C) Soft tissue injury of left foot (Acute) Injury of left foot Chest pain (Acute) Cellulitis of left foot (Acute) Constipation (Chronic) Medical History (Updated 01/21/25 @ 22:47 by Drew Larkin PA-C) Ovarian cyst H/O hemorrhoids Surgical History (Updated 01/21/25 @ 17:37 by Jennifer Cifuentes PA-C) History of colposcopy History of rectal surgery Social History (Updated 01/21/25 @ 17:35 by Jennifer Cifuentes PA-C) Smoking Status: Never smoker Second Hand Exposure: No; Do You Dip or Chew Tobacco: No; Tobacco Cessation Education Requested by Patient: No Hx Alcohol Use: Yes Alcohol type: beer and wine Hx Substance Use: No Preferred Language: [place] Front Desk Lead Required: No Beliefs That Will Affect Care: None marital status: Current Living Situation: Spouse current occupational status: employed Other Information That Helps Us Care for You: No Feels Safe at Home: Yes Safety Concerns: Feels Safe At This Time Assistive Devices: None Review of Systems All systems reviewed & are unremarkable except as noted in HPI & below. Physical Exam . * General: Alert and oriented, no acute distress * Constitutional: well-developed, well-nourished. * Respiratory: Normal respiratory effort, no distress * Gastrointestinal: No tenderness to palpation, no rigidity or guarding. * Skin: No rash or lesion. * Neurologic: Grossly normal * Musculoskeletal: Left foot with moderate dorsal swelling, healing superficial abrasion, no active drainage or evidence of deep tunneling on exam today. Skin wrinkling present. Minimal erythema, well inside drawn border. Diffuse TTP dorsal and lateral foot. Otherwise no tenderness knee region, lower leg, ankle. AROM toe flexion/extension quite limited. AROM ankle dorsi/plantar extension intact. Toes well perfused. Results & Data Results & Data Laboratory Results . 01/22/25 01/21/25 05:26 17:00 WBC 8.28 9.44 RBC 4.60 4.61 Hgb 13.4 13.5 Hct 39.7 39.8 MCV 86.3 86.3 MCH 29.1 29.3 MCHC 33.8 33.9 RDW Std Deviation 39.0 39.0 RDW Coeff of Nubia 12.3 12.4 Plt Count 362 402 H MPV 9.8 9.8 Immature Gran % (Auto) 0.4 0.2 Neut % (Auto) 52.5 56.9 Lymph % (Auto) 38.2 33.9 Lamar % (Auto) 6.3 7.1 Eos % (Auto) 1.6 1.2 Baso % (Auto) 1.0 0.7 Neut # (Auto) 4.36 5.37 Lymph # (Auto) 3.16 3.20 Lamar # (Auto) 0.52 0.67 H Eos # (Auto) 0.13 0.11 Baso # (Auto) 0.08 0.07 Immature Gran # (Auto) 0.03 0.02 Sodium 139 139 Potassium 4.2 4.4 Chloride 106 105 Carbon Dioxide 24 26 Anion Gap 9 8 BUN 17 15 Creatinine 0.78 0.83 Est Cr Clr Drug Dosing 102.7 96.5 eGFR 100.89 93.64 BUN/Creatinine Ratio 21.8 H 18.1 Glucose 90 90 Calcium 9.2 9.6 Total Bilirubin 0.8 0.5 AST 14 13 ALT 16 16 Alkaline Phosphatase 64 71 Total Protein 6.8 7.3 Albumin 4.0 4.2 Globulin 2.8 3.1 Albumin/Globulin Ratio 1.4 1.4 Procalcitonin < 0.02 HCG, Qual Negative Diagnostic Findings 01/19: L foot XR FINDINGS: No acute fracture or dislocation is identified. Os navicularis with suspected pseudoarticulation or partial fusion. 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 Soft tissue swelling of the dorsal foot. Alignment is unremarkable, although not well assessed on nonweightbearing views. 01/03: L foot CT IMPRESSION: No acute traumatic fracture detected. Soft tissue hematomas in the dorsum of the forefoot. PG Care Time/CCT Total # of Minutes Spent Total Time Spent with Patient: Total time spent is greater than 50% in coordination of care (as documented) at patient's floor/unit and/or counseling patient: [place] [address] IN/OBS CONSULT LVL 2,35M Patient Type Established History Problem Focused Exam Problem Focused Medical Decision Making Straight Forward Diagnoses Soft tissue injury of left foot S99.922A
[2025-01-22] MEDS: GADOBUTROL 65ML VIAL IV ONE (12:29)
--- NOTE | 2025-01-22 13:03 | Magnetic Resonance Report ---
LEFT FOOT MRI WITH AND WITHOUT CONTRAST CLINICAL HISTORY: Left foot trauma several weeks ago. Left foot erythema, swelling. Fever. COMPARISON STUDY: Left foot radiographs January 03, 2025 and January 19, 2025. Left foot CT January 03, 2025. TECHNIQUE: Utilizing a 3 Eloise magnet and dedicated coil, multiplanar, multiecho imaging of the left foot was performed pre and postcontrast administration. Intravenous injection of 7.5 cc of Gadavist w as uneventful. FINDINGS: Alignment of the left foot is anatomic. Tarsometatarsal joints are intact. Lisfranc ligamen t is intact. No fractures within the left foot are present. An accessory navicular is incidentally no tania. Apparent marrow edema within multiple phalanges is likely due to failure fat saturation. No join t effusions are identified within the left foot. Visualized portions of the flexor and extensor muscl es appear intact. Multiple dorsal subcutaneous T1 hyperintense fluid collections are noted. The large st collection measures 5.3 x 5.2 x 1 cm in the transverse by craniocaudal by AP dimensions respective ly. These collections have slightly decreased in size since CT of January 03, 2025 when allowing for dif ferences in technique. There is no significant peripheral enhancement. Mild edema and enhancement wit hin the underlying musculature is present. No intramuscular fluid collection is present. There is no MRI evidence for osteomyelitis. IMPRESSION: 1. Redemonstration of several subcutaneous dorsal mid and forefoot T1 hyperintense collections, sligh tly decreased in size since CT of January 03, 2025. These are consistent with hematomas. 2. Mild edema and enhancement within the adjacent musculature. This is also likely posttraumatic. No intramuscular fluid collection. 3. No fractures within the left foot. No evidence for osteomyelitis within the left foot. ACT 112: Negative or not required by law. Electronically signed by: Randolph Schulz M.D. 01/22/2025 1:02 PM
[2025-01-22 15:10] VITALS: BP 115/74; PULSE 71; RESP 14; TEMP 98.2; O2SAT 98
--- NOTE | 2025-01-22 15:10 | Discharge Summary ---
Discharge Summary Date of Service January 22, 2025 Principal Dx & Hospital Course #1 = Principal Diagnosis (1) Soft tissue injury of left foot: (2) Traumatic hematoma of left foot: Plan Patient is 34-year-old female who had a traumatic injury of her left foot when a horse stepped on it on 01/03/2025. Since that time she has been in a boot. She has had x-rays and CTs of the foot which did show significant hematoma. However she continued with significant swelling redness and tenderness. She completed a full course of Keflex. On 12/31/2027 she was seen in the ED and received a dose of Dalvance. She was also prescribed oral doxycycline. Return to the emergency department on 01/21/2025 for recheck and was recommended admission. Patient was admitted to the hospital. She was placed on cefepime. Orthopedic consultation was obtained. She was evaluated by orthopedics who felt that this was a soft tissue injury of the foot with subsequent blistering and edema. There had low concern for any deep soft tissue infection or abscess. We did proceed with MRI of the foot. MRI of the foot confirmed hematoma of the foot that actually was smaller in size than previous CAT scan. There was no fracture. There was no evidence of abscess or significant cellulitis noted. Long discussion with the patient explaining to her that the swelling, redness and tenderness is most likely due to soft tissue traumatic injury as well as the pressure caused by the large hematoma that is in her foot. Explained to her the strong nature of the Dalvance antibiotic. Explained to her that this would continue to work for several more days. This would clear any type of infection that may be present. Expressed to her my concern of giving her any additional antibiotics increasing her risk for C. difficile or other adverse effects of multiple antibiotics. I felt that she could continue with her weightbearing as tolerated. Follow-up with her PCP. Pain medications as needed. And be discharged home. Notes For Next Care Provider Anticipate this will continue to improve over the next few weeks Medication Changes From Visit None Admission HPI Per Admitting Provider This is a 34-year-old otherwise healthy female who presents to ED secondary to left foot injury. Of significance patient was stepped on by a horse on 01/03. She was seen and examined in the ED on the same day. Per documentation tetanus is up-to-date. She underwent left foot x-ray and left foot CT. There is no evidence of acute fracture and she was placed in a posterior Ortho-Glass splint. She was seen and examined by orthopedics on 01/09 where it was felt that this was likely significant soft tissue injury and no acute fracture. She was encouraged to be nonweightbearing until pain improved. Due to persisting pain and swelling she ought to be seen in ED on 01/13 and 01/19. On 01/13 she was started on a course of Keflex. She has since completed the course of Keflex. She was reevaluated in ED on 01/19 and received a dose of IV Dalvance and prescribed doxy. She was encouraged to follow-up today for a wound recheck. Due to no significant improvement admission was recommended. In ED patient made hemodynamically stable. On she underwent a CBC, BMP as well as blood c ultures which are showing no growth to date. Admission Exam Per Admitting Provider See H&P Discharge Exam Constitutional: Alert, nontoxic HEENT: Mucous membranes moist. Lungs: Clear to auscultation, decreased, no wheezes rales or rhonchi CV: S1-S2, regular Abdomen: Soft, nontender, nondistended Extremities: Left foot with swelling, minimal to no erythema, evidence of a contusion, some superficial skin peeling from the crush injury. Some mild tenderness to palpation. Neuro: No focal deficits Psych: Cooperative, normal mood Updated Medication List Medication Instructions Recorded Confirmed Type tramadol 50 mg tablet 50 mg PO Q8H PRN pain #20 tabs 01/09/25 01/21/25 Rx doxycycline hyclate 100 mg capsule 100 mg PO BID 10 days #20 caps 01/17/25 01/21/25 Rx cephalexin 500 mg capsule 500 mg PO TID 01/21/25 01/21/25 History epinephrine 0.3 mg/0.3 mL 0.3 mg IM DIRECTED PRN 01/21/25 01/21/25 History injection, auto-injector anaphylaxis Hospital Stay Data Consultations 01/21/25 16:47 ED Decision to Admit Stat 01/21/25 17:23 Consult Orthopedic Surgery Routine Diagnostic Imagining Performed 01/22/25 10:10 MRI Foot [MR foot LT wo/w con] Routine Reviewed imaging, laboratory and diagnostic studies. Pertinent findings as below. Blood cultures obtained prior to admission no growth to date Procalcitonin less than 0.02 Electrolytes within normal range LFTs within normal range Creatinine 0.78 WBCs 8.2 Hemoglobin 13.4 MRI left foot impression: 1. Redemonstration of several subcutaneous dorsal mid and forefoot T1 hyperintense collections, slightly decreased in size since CT of January 03, 2025. These are consistent with hematomas. 2. Mild edema and enhancement within the adjacent musculature. This is also likely posttraumatic. No intramuscular fluid collection. 3. No fractures within the left foot. No evidence for osteomyelitis within the left foot. Pending Results Patient Have Any Pending Studies at Discharge: No Discharge Instructions Given to Patient (Per Discharging Provider) I suspect that most of the swelling, redness, tenderness of your foot is due to traumatic injury of the soft tissues and a hematoma that is under the skin. You have been treated with Dalvance, this is a very strong antibiotic and works for more than a week and will treat any type of infection that could be also present in the soft tissue. Total Time Total Time Spent Total Time Spent (In Minutes): 40
== END 2025-01-22 16:57 | disposition home or self-care (01) | DRG 605 ==
LOC: ED 16:13 → 3E 16:50 → SUATTDRO 16:50 → 3E 17:22
DX: L03.116 Cellulitis of left lower limb; Z91.040 Latex allergy status; S90.32XA Contusion of left foot, initial encounter; Z88.0 Allergy status to penicillin; Z88.1 Allergy status to other antibiotic agents; Z88.5 Allergy status to narcotic agent; W55.12XA Struck by horse, initial encounter